=== PATIENT | male | born 1960 | race Caucasian/White ===

== ENCOUNTER → 2018-01-30 | Outpatient (CLI) | payer OTHER | END | disposition home or self-care (01) | LOC: CDC 15:30 | DX: Z01.810 Encounter for preprocedural cardiovascular examination (principal); M65.841 Other synovitis and tenosynovitis, right hand; M65.331 Trigger finger, right middle finger; R00.1 Bradycardia, unspecified; R94.31 Abnormal electrocardiogram [ECG] [EKG] | CPT/HCPCS: 93000 ==